=== PATIENT | female | born 1975 | race Caucasian/White ===

== ENCOUNTER 2017-11-06 11:39 | Emergency (ER) | payer OTHER ==
[~2017-11-06] VITALS: Ht 152.4 cm; Wt 49.9 kg
[~2017-11-06 11:39] MED LIST: ADVIL200 MG PO; ALBUTEROL0.09 MG/A2 IH; AMOXICILLIN500 MG PO; ATIVAN0.5 MG PO; BIAXIN500 MG PO; DIFLUCAN150 MG PO; EES400 MG PO; NAPROSYN500 MG PO; NKHM; PEN-VK500 MG PO; PENICILLIN V500 MG PO; PROVENTIL0.09 MG/AC IH; VICODIN 5/500 505 MG PO; VICODIN ES 7501 TAB PO
[2017-11-06 11:40] VITALS: BP 154/86
[2017-11-06 12:05] LABS: BASO # 0.1 10*3/uL (0.0-0.1); BASO % 1.3 % (0.0-1.0); EOS # 0.2 10*3/uL (0.0-0.4); EOS % 2.8 % (1.0-4.0); HEMATOCRIT 41.8 % (37.0-47.0); HEMOGLOBIN 13.7 g/dl (12.0-16.0); LYMPH # 2.7 10*3/uL (1.3-4.4); LYMPH % 36.3 % (27.0-41.0); MEAN CELL VOLUME 94.8 fl (81.0-99.0); MEAN CORPUSCULAR HGB 31.1 pg (27.0-31.0); MEAN CORPUSCULAR HGB CONC 32.8 g/dl (33.0-37.0); MEAN PLATELET VOLUME 11.8 fl (9.6-12.3); MONO # 0.9 10*3/uL (0.1-1.0); MONO % 11.7 % (3.0-9.0); NEUT # 3.5 10*3/uL (2.3-7.9); NEUT % 47.6 % (47.0-73.0); PLATELET COUNT AUTOMATED 192 10*3/uL (130-400); RED BLOOD COUNT 4.41 10*6/uL (4.10-5.10); RED CELL DISTRI WIDTH 13.8 % (0-14.5); WHITE BLOOD COUNT 7.4 10*3/uL (4.8-10.8)
[2017-11-06 12:17] LABS: ALBUMIN 3.8 gm/dl (3.1-4.5); ALKALINE PHOSPHATASE 75 U/L (45-117); BUN 7 mg/dl (7-24); CHLORIDE 106 mmol/L (98-107); CREATININE 0.75 mg/dL (0.55-1.02); POTASSIUM 3.8 mmol/L (3.5-5.1); SGOT/AST 15 IU/L (3-35); SGPT/ALT 17 U/L (12-78); SODIUM 139 mmol/L (136-145)
[2017-11-06] MEDS ORDERED: CHLORZOXAZONE500 M2 PO (13:26)
[2017-11-06] MEDS ORDERED: NAPROSYN500 MG PO (13:26)
[2017-11-06] MEDS ORDERED: NORCO 5-325 TA1 EACH PO (14:06)
== END 2017-11-06 14:17 | disposition home or self-care (01) ==
LOC: ED 11:39
PROVIDERS: Nurse Practitioner Family
DX: S32.039A Unspecified fracture of third lumbar vertebra, initial encounter for closed fracture (principal); S32.049A Unspecified fracture of fourth lumbar vertebra, initial encounter for closed fracture; S32.059A Unspecified fracture of fifth lumbar vertebra, initial encounter for closed fracture; R03.0 Elevated blood-pressure reading, without diagnosis of hypertension; M79.605 Pain in left leg; W18.30XA Fall on same level, unspecified, initial encounter; Y93.89 Activity, other specified; Y92.89 Other specified places as the place of occurrence of the external cause; Y99.8 Other external cause status

== ENCOUNTER → 2018-07-26 | Outpatient (CLI) | payer OTHER ==
[~2018-07-26] MED LIST changes: +CHLORZOXAZONE500 M2 PO; +NORCO 5-325 TA1 EACH PO
== END | disposition home or self-care (01) ==
LOC: MAMMO 08:49
DX: Z12.31 Encounter for screening mammogram for malignant neoplasm of breast (principal)

== ENCOUNTER 2018-08-15 08:27 | Emergency (ER) | payer OTHER ==
[~2018-08-15] VITALS: Ht 152.4 cm; Wt 48.1 kg
--- NOTE | ~2018-08-15 | EKG ---
[place], [place] ELECTROCARDIOGRAM REPORT NAME: ANA MARTINES UNIT #: [id number] ROOM: DOCTOR: EPIPHANY DRAFT REPORT BIRTHDATE: [birth year] [facility] Test Date: 2018-08-15 Test Time: 09:07:37 Pat Name: ANA MARTINES Department: Room: Gender: F Research & Analytics Manager: Soo Chung : 1975 Requested By: PEYMAN BENAVIDEZ Order Number: [id number] Reading MD: Simon Ramírez MD Measurements Intervals [place] Rate: 88 P: 71 LA: 133 QRS: 22 QRSD: 94 T: 33 QT: 390 QTc: 472 Interpretive Statements Sinus rhythm Electronically Signed On 08-17-2018 9:29:28 PDT by Simon Ramírez MD CM:EKGRPT:ELECTROCARDIOGRAM REPORT [id number] PEYMAN ASHLEY DRAFT REPORT PEYMAN BENAVIDEZ M.D.
[2018-08-15 08:36] VITALS: BP 141/94
[2018-08-15 09:11] LABS: BASO # 0.2 10*3/uL (0.0-0.1); BASO % 1.5 % (0.0-1.0); EOS # 0.2 10*3/uL (0.0-0.4); EOS % 1.5 % (1.0-4.0); HEMOGLOBIN 13.7 g/dl (12.0-16.0); LYMPH # 2.6 10*3/uL (1.3-4.4); LYMPH % 22.4 % (27.0-41.0); MEAN CELL VOLUME 93.5 fl (81.0-99.0); MEAN CORPUSCULAR HGB 30.5 pg (27.0-31.0); MEAN CORPUSCULAR HGB CONC 32.6 g/dl (33.0-37.0); MEAN PLATELET VOLUME 11.7 fl (9.6-12.3); MONO # 0.9 10*3/uL (0.1-1.0); MONO % 7.9 % (3.0-9.0); NEUT # 7.8 10*3/uL (2.3-7.9); NEUT % 66.4 % (47.0-73.0); PLATELET COUNT AUTOMATED 205 10*3/uL (130-400); RED BLOOD COUNT 4.49 10*6/uL (4.10-5.10); RED CELL DISTRI WIDTH 13.9 % (0-14.5); WHITE BLOOD COUNT 11.7 10*3/uL (4.8-10.8)
[2018-08-15 09:29] LABS: ALBUMIN 3.7 gm/dl (3.1-4.5); ALKALINE PHOSPHATASE 75 U/L (45-117); BUN 10 mg/dl (7-24); CHLORIDE 106 mmol/L (98-107); CREATININE 0.65 mg/dL (0.55-1.02); POTASSIUM 4.2 mmol/L (3.5-5.1); SGOT/AST 15 IU/L (3-35); SGPT/ALT 14 U/L (12-78); SODIUM 139 mmol/L (136-145); TOTAL PROTEIN 7.3 gm/dL (6.4-8.2)
[2018-08-15 09:31] LABS: TROPONIN I < 0.015 ng/ml (<0.045)
== END 2018-08-15 10:45 | disposition home or self-care (01) ==
LOC: ED 08:27
PROVIDERS: Emergency Medicine
DX: R55 Syncope and collapse (principal); R25.1 Tremor, unspecified

== ENCOUNTER 2019-01-31 15:49 | Emergency (ER) | payer OTHER ==
[~2019-01-31] VITALS: Ht 152.4 cm; Wt 47.6 kg
[2019-01-31 15:52] VITALS: BP 126/88
== END 2019-01-31 17:30 | disposition left against medical advice (07) ==
LOC: ED 15:49
DX: S90.31XA Contusion of right foot, initial encounter (principal); W20.8XXA Other cause of strike by thrown, projected or falling object, initial encounter; Y93.89 Activity, other specified; Y92.89 Other specified places as the place of occurrence of the external cause; Y99.8 Other external cause status

== ENCOUNTER → 2019-03-27 | Outpatient (CLI) | payer OTHER | END | disposition home or self-care (01) | LOC: RAD 13:45 | DX: M17.11 Unilateral primary osteoarthritis, right knee (principal) ==

== ENCOUNTER → 2020-06-01 | Outpatient (CLI) | payer OTHER ==
[2020-06-01 14:49] LABS: HEMATOCRIT 41.2 % (37.0-47.0); MEAN CELL VOLUME 94.5 fl (81.0-99.0); MEAN CORPUSCULAR HGB 30.5 pg (27.0-31.0); MEAN CORPUSCULAR HGB CONC 32.3 g/dl (33.0-37.0); PLATELET COUNT AUTOMATED 261 10*3/uL (130-400); RED BLOOD COUNT 4.36 10*6/uL (4.10-5.10); RED CELL DISTRI WIDTH 14.6 % (0-14.5); RETICULOCYTE % 1.12 % (0.50-2.50); WHITE BLOOD COUNT 9.6 10*3/uL (4.8-10.8)
[2020-06-01 14:50] LABS: BILIRUBIN Negative (Negative); BLOOD Negative (Negative); CLARITY Clear (Clear); COLOR Yellow (Yellow); GLUCOSE Negative (Negative); KETONE Negative (Negative); LEUKO ESTERASE Negative (Negative); NITRITE Negative (Negative); PH 6.5 (4.5-8.0)
[2020-06-01 15:07] LABS: ALBUMIN 3.8 gm/dl (3.1-4.5); ALKALINE PHOSPHATASE 98 U/L (45-117); BUN 13 mg/dl (7-24); CHLORIDE 107 mmol/L (98-107); CHOLESTEROL 231 mg/dL (<200); GAMMA GLUTAMYL TRANSPEPTIDASE 41 U/L (5-55); HDL CHOLESTEROL 68 mg/dl (40-60); IRON 114 ug/dL (50-170); LDL CHOLESTEROL 106 mg/dL (9-159); POTASSIUM 3.7 mmol/L (3.5-5.1); SGOT/AST 19 IU/L (3-35); SGPT/ALT 23 U/L (12-78); SODIUM 140 mmol/L (136-145); TOTAL IRON BINDING CAPACITY 404 ug/dl (250-450); TOTAL PROTEIN 7.6 gm/dL (6.4-8.2); TRIGLYCERIDES 285 mg/dl (<150); VLDL CHOLESTEROL 57 mg/dL (6-40)
[2020-06-01 15:13] LABS: THYROID STIM HORMONE (HS) 0.475 uIU/ml (0.358-4.75)
[2020-06-01 15:29] LABS: VITAMIN D, 25-HYDROXY 29.7 ng/mL (30-100)
[2020-06-01 15:31] LABS: BACTERIA TRACE; EPITHELIAL CELLS 21-30; WBC 0-2 wbc/hpf (0-5)
[2020-06-01 15:39] LABS: BASOPHILS 1 % (0-1); TOTAL CELLS COUNTED 100 #CELLS
[2020-06-01 15:40] LABS: PLATELET SUFFICIENCY NORMAL (NORMAL)
[2020-06-02 06:07] LABS: HEP B CORE AB, IGM Negative (Negative); HEPATITIS B SURFACE AG Negative (Negative); HEPATITIS C VIRUS ANTIBODY <0.1 s/co (0.0-0.9)
== END | disposition home or self-care (01) ==
LOC: LAB 14:25
PROVIDERS: ATTEND Family Medicine
DX: E78.5 Hyperlipidemia, unspecified (principal); R53.83 Other fatigue; E55.9 Vitamin D deficiency, unspecified; R79.89 Other specified abnormal findings of blood chemistry

== ENCOUNTER → 2020-06-16 | Outpatient (CLI) | payer OTHER | END | disposition home or self-care (01) | LOC: MAMMO 14:43 | PROVIDERS: ATTEND Nurse Practitioner Women's Health | DX: Z12.31 Encounter for screening mammogram for malignant neoplasm of breast (principal); N64.89 Other specified disorders of breast ==

== ENCOUNTER 2020-09-29 13:04 | Emergency (ER) | payer OTHER ==
[~2020-09-29] VITALS: Ht 152.4 cm; Wt 49.0 kg
[2020-09-29 13:19] VITALS: BP 152/80
[2020-09-29] MEDS ORDERED: AUGMENTIN 875875 MG PO (13:32)
== END 2020-09-29 13:33 | disposition home or self-care (01) ==
LOC: ED 13:04
DX: S51.851A Open bite of right forearm, initial encounter (principal); W55.01XA Bitten by cat, initial encounter; Y93.89 Activity, other specified; Y92.89 Other specified places as the place of occurrence of the external cause; Y99.8 Other external cause status

== ENCOUNTER 2020-10-24 22:50 | Emergency (ER) | payer OTHER ==
[~2020-10-24] VITALS: Ht 152.4 cm; Wt 47.6 kg
[~2020-10-24 22:50] MED LIST changes: +AUGMENTIN 875875 MG PO
[2020-10-24 23:01] VITALS: BP 171/107
[2020-10-25 00:37] LABS: HEMATOCRIT 38.5 % (37.0-47.0); MEAN CELL VOLUME 92.5 fl (81.0-99.0); MEAN CORPUSCULAR HGB 30.5 pg (27.0-31.0); MEAN PLATELET VOLUME 11.3 fl (9.6-12.3); PLATELET COUNT AUTOMATED 193 10*3/uL (130-400); RED BLOOD COUNT 4.16 10*6/uL (4.10-5.10); RED CELL DISTRI WIDTH 13.9 % (0-14.5)
[2020-10-25 00:57] LABS: ALBUMIN 3.4 gm/dl (3.1-4.5); ALKALINE PHOSPHATASE 77 U/L (45-117); BUN 9 mg/dl (7-24); CHLORIDE 107 mmol/L (98-107); CREATININE 0.59 mg/dL (0.55-1.02); POTASSIUM 3.2 mmol/L (3.5-5.1); SGOT/AST 17 IU/L (3-35); SGPT/ALT 16 U/L (12-78); SODIUM 140 mmol/L (136-145); TOTAL PROTEIN 6.6 gm/dL (6.4-8.2)
[2020-10-25 01:11] LABS: PLATELET SUFFICIENCY NORMAL (NORMAL); TOTAL CELLS COUNTED 100 #CELLS
== END 2020-10-25 02:47 | disposition home or self-care (01) ==
LOC: ED 22:50
PROVIDERS: Emergency Medicine
DX: R25.1 Tremor, unspecified (principal); R51.9 Headache, unspecified; M54.9 Dorsalgia, unspecified; Z79.2 Long term (current) use of antibiotics

== ENCOUNTER → 2021-11-15 | Outpatient (CLI) | payer OTHER | END | disposition home or self-care (01) | LOC: MAMMO 13:00 | PROVIDERS: ATTEND Nurse Practitioner Women's Health | DX: Z12.31 Encounter for screening mammogram for malignant neoplasm of breast (principal) ==

== ENCOUNTER 2021-12-27 10:22 | Emergency (ER) | payer OTHER ==
[2021-12-27 10:30] VITALS: BP 164/98
== END 2021-12-27 10:47 | disposition home or self-care (01) ==
LOC: ED 10:22
DX: S61.211A Laceration without foreign body of left index finger without damage to nail, initial encounter (principal); F17.200 Nicotine dependence, unspecified, uncomplicated; W26.0XXA Contact with knife, initial encounter; Y93.89 Activity, other specified; Y92.89 Other specified places as the place of occurrence of the external cause; Y99.8 Other external cause status

== ENCOUNTER 2021-12-27 19:29 | Emergency (ER) | payer OTHER | END 2021-12-27 21:51 | disposition left against medical advice (07) | LOC: ED 19:29 | DX: Z53.21 Procedure and treatment not carried out due to patient leaving prior to being seen by health care provider (principal) ==

== ENCOUNTER 2023-06-10 14:02 | Emergency (ER) | payer OTHER ==
[~2023-06-10] VITALS: Ht 152.4 cm; Wt 47.6 kg
[2023-06-10 14:16] VITALS: BP 176/94
[2023-06-10 15:57] LABS: BASO # 0.1 10*3/uL (0.0-0.1); BASO % 1.4 % (0.0-1.0); EOS # 0.1 10*3/uL (0.0-0.4); EOS % 0.8 % (1.0-4.0); HEMATOCRIT 41.9 % (37.0-47.0); LYMPH # 3.4 10*3/uL (1.3-4.4); LYMPH % 32.9 % (27.0-41.0); MEAN CELL VOLUME 96.1 fl (81.0-99.0); MEAN CORPUSCULAR HGB 32.1 pg (27.0-31.0); MEAN CORPUSCULAR HGB CONC 33.4 g/dl (33.0-37.0); MEAN PLATELET VOLUME 10.8 fl (9.6-12.3); MONO % 9.2 % (3.0-9.0); NEUT # 5.7 10*3/uL (2.3-7.9); NEUT % 55.5 % (47.0-73.0); PLATELET COUNT AUTOMATED 241 10*3/uL (130-400); RED BLOOD COUNT 4.36 10*6/uL (4.10-5.10); RED CELL DISTRI WIDTH 13.2 % (0-14.5); WHITE BLOOD COUNT 10.3 10*3/uL (4.8-10.8)
[2023-06-10 16:26] LABS: ALKALINE PHOSPHATASE 84 U/L (46-116); BUN 11 mg/dl (9-23); CHLORIDE 106 mmol/L (98-107); POTASSIUM 3.9 mmol/L (3.4-5.1); SGPT/ALT 15 U/L (5-49); TOTAL PROTEIN 6.8 gm/dL (6.0-8.0)
[2023-06-10 16:49] LABS: BILIRUBIN Negative (Negative); BLOOD Negative (Negative); CLARITY Clear (Clear); COLOR Yellow (Yellow); GLUCOSE Negative (Negative); KETONE Negative (Negative); LEUKO ESTERASE Trace (Negative); NITRITE Negative (Negative); PH 7.5 (4.5-8.0); SPECIFIC GRAVITY 1.025 (1.001-1.030)
[2023-06-10 16:57] LABS: BACTERIA 1+; MUCOUS 1+
== END 2023-06-10 18:10 | disposition home or self-care (01) ==
LOC: ED 14:02
PROVIDERS: Internal Medicine
DX: R63.0 Anorexia (principal); F32.A Depression, unspecified; Z68.1 Body mass index [BMI] 19.9 or less, adult; Z98.890 Other specified postprocedural states; Z87.891 Personal history of nicotine dependence; Z79.899 Other long term (current) drug therapy